=== PATIENT | female | born 1995 | race Two or more races ===

== ENCOUNTER 2017-02-16 12:46 | Emergency (ER) | payer OTHER ==
[~2017-02-16] VITALS: Ht 157.5 cm; Wt 83.9 kg
[~2017-02-16 12:46] MED LIST: IBUPROFEN600 MG ORAL; KEFLEX500 MG ORAL; NKM
[2017-02-16] MEDS ORDERED: KENALOG 0.5% CR15 GM APPLIC (13:16)
[2017-02-16 13:24] VITALS: BP 143/66
--- NOTE | 2017-02-16 16:18 | Emergency Room Report ---
History of Present Illness General Chief Complaint: Skin Rash/Abscess Source: Patient Present Illness HPI The patient is a 21-year-old female presenting for rash to the face. She states that this began two weeks prior without any known cause. She denies using any new products on the face. She denies any known allergies. Rash is described as a burning and itching sensation. 8/10 pain. Does not radiate. Worse with touch. She has tried Benadryl at home which has not helped. She also saw her primary doctor who prescribed antibiotics which also did not help. Allergies: Coded Allergies: No Known Allergies (Unverified , 08/21/15) Patient History Past Medical History: see triage record Pertinent Family History: none Now: No Reviewed Nursing Documentation: PMH: Agreed, PSxH: Agreed Nursing Documentation-PMH Past Medical History: No Stated History Hx Asthma: Yes Review of Systems All Other Systems: negative except mentioned in HPI Physical Exam Vital Signs Date Time Temp Pulse Resp B/P Pulse Ox O2 Delivery O2 Flow Rate FiO2 02/16/17 12:56 98.2 66 20 130/93 99 Room Air Sp02 EP Interpretation: reviewed, normal General Appearance: no apparent distress, alert, GCS 15, non-toxic Head: normocephalic, atraumatic Eyes: bilateral eye PERRL, bilateral eye normal inspection ENT: hearing grossly normal, normal pharynx, no angioedema, normal voice Neck: full range of motion, supple/symm/no masses Musculoskeletal: back normal, gait/station normal, normal range of motion, non- tender Neurologic: alert, oriented x3, responsive, motor strength/tone normal, sensory intact, speech normal Psychiatric: judgement/insight normal, memory normal, mood/affect normal, no suicidal/homicidal ideation Skin: warm/dry, normal turgor, rash - there is erythema and scaling inferior to the both eyes. Spares the nose. Lymphatic: no adenopathy Medical Decision Making PA Attestation Dr. Manzano is my supervising physician. Patient management was discussed with my supervising physician Diagnostic Impression: Primary Impression: Eczema of face ER Course The patient is a 21-year-old female presenting with facial rash Differential diagnoses considered but not limited to: Eczema, SLE, cellulitis, contact dermatitis, among others PE: afebrile. NAD there is erythema and scaling inferior to the both eyes. Spares the nose. Otherwise exam is unremarkable Patient will be discharged home with a prescription for triamcinolone and needs to follow up with primary doctor. She was told to followup with dermatology if symptoms do not improve or if they worsen. ER precautions given Last Vital Signs Date Time Temp Pulse Resp B/P Pulse Ox O2 Delivery O2 Flow Rate FiO2 02/16/17 13:24 98.6 70 19 143/66 98 Room Air Status: improved Disposition: HOME, SELF-CARE Condition: Improved Scripts Triamcinolone Acet (Triamcinolone Acetonide) 15 Gm Cream..g. 15 GM APPLIC TID, #15 GM Prov: HAFSA AYON 02/16/17 Referrals: [facility] (PCP) Patient Instructions: Rash Additional Instructions: I discussed my findings with the patient. All questions and concerns have been answered. Treatment and medication compliance have been addressed. I advised the patient that they need to follow up with PMD in 3-5 days. Return to ED if symptoms worsen, new symptoms arise, or if needed for any reason. Patient verbalized understanding of discharge instructions. HAFSA AYON Feb 16, 2017 16:18
== END 2017-02-16 13:24 | disposition home or self-care (01) ==
LOC: EMR 13:15
DX: L30.9 Dermatitis, unspecified (principal)
CPT/HCPCS: 99283

== ENCOUNTER 2017-12-25 08:42 | Emergency (ER) | payer OTHER ==
[~2017-12-25] VITALS: Ht 157.5 cm; Wt 85.7 kg
[~2017-12-25 08:42] MED LIST changes: +KENALOG 0.5% CR15 GM APPLIC
[2017-12-25 08:54] VITALS: BP 132/82
--- NOTE | 2017-12-25 09:19 | Emergency Room Report ---
History of Present Illness General Chief Complaint: Pain Source: Patient Present Illness HPI 22-year-old female with no medical problems presents with right breast pain for the last 2 weeks. She reports that she's had a small lump there at the 8 o' clock position of her nipple for the past year, she reports it swells and then recedes off and on. However, now she reports it is red and she is having discharge from that 8 o'clock position as well as possibly from the nipple. She reports a whole breast is tender but mostly over the 1 small spot, she also reports that spot is red now. She reports a sensation of nausea, but denies vomiting, fevers, chills, shortness of breath, any other complaints. She has a primary care doctor, but has not consulted him regarding this yet. She has never had a mammogram either. She also has no family history of breast cancer. Allergies: Coded Allergies: No Known Allergies (Unverified , 08/21/15) Patient History Past Medical History: see triage record Last Menstrual Period: Current, started yesterday. Now: No : 0 Para: 0 Reviewed Nursing Documentation: PMH: Agreed; PSxH: Agreed Nursing Documentation-PMH Past Medical History: No History, Except For Hx Asthma: Yes Review of Systems All Other Systems: negative except mentioned in HPI Physical Exam Vital Signs Date Time Temp Pulse Resp B/P (MAP) Pulse Ox O2 Delivery O2 Flow Rate FiO2 12/25/17 08:46 98.9 60 17 132/82 96 Room Air 99.0 Sp02 EP Interpretation: reviewed, normal General Appearance: no apparent distress, alert, non-toxic Head: normocephalic Eyes: bilateral eye normal inspection, bilateral eye PERRL, bilateral eye EOMI ENT: normal ENT inspection, hearing grossly normal, normal pharynx, no angioedema, normal voice, moist mucus membranes Neck: normal inspection, full range of motion, supple, supple/symm/no masses Respiratory: chest non-tender, lungs clear, normal breath sounds, chest symmetrical, palpation of chest normal Cardiovascular #1: normal peripheral pulses, regular rate, rhythm Cardiovascular #2: 2+ radial (R), 2+ radial (L) Gastrointestinal: normal inspection, non tender, soft, no mass, no guarding, no rebound Rectal: deferred Genitourinary: normal inspection, no CVA tenderness Musculoskeletal: back normal, gait/station normal, normal range of motion, non- tender, no calf tenderness Neurologic: alert, responsive, conduit reamer operator III-XII nml as tested, motor strength/tone normal, sensory intact, speech normal Psychiatric: judgement/insight normal, memory normal, mood/affect normal, no suicidal/homicidal ideation Skin: warm/dry, normal turgor, other - R breast exam with Magalie RN as mix maker , 1cm area of erythema at 8 o'clock position just at edge of nipple, no fluctuance, no dc, no nipple dc, no dimpling, no warmth; +mild tenderness diffusely over R breast but normal appearance. Normal axillary LAD, normal contralateral breast. Lymphatic: normal inspection, no adenopathy Medical Decision Making Diagnostic Impression: Primary Impression: Cellulitis of breast ER Course Patient will be treated for breast cellulitis, there is no palpable lump would mandate incision and drainage, I did addiction counselor her on the importance of getting a mammogram, and follow-up with PMD in 2-3 days. I do not have a high suspicion for breast cancer, but has this lump has been persistent for a year, I did report to her that it has to be evaluated further. She seemed to understand and agree. UPreg negative. Last Vital Signs Date Time Temp Pulse Resp B/P (MAP) Pulse Ox O2 Delivery O2 Flow Rate FiO2 12/25/17 08:54 99.0 60 17 132/82 96 Room Air 99.0 Disposition: HOME, SELF-CARE Condition: Stable Referrals: [facility] (PCP) BRENDON SMITH M.D Dec 25, 2017 09:19
[2017-12-25] MEDS ORDERED: AMOXICILLIN500 MG ORAL (09:31)
[2017-12-25] MEDS ORDERED: BACTRIM DS TAB1 EAC1 ORAL (09:31)
[2017-12-25] MEDS ORDERED: IBUPROFEN600 MG ORAL (09:31)
[2017-12-25 09:38] VITALS: BP 132/82
== END 2017-12-25 09:40 | disposition home or self-care (01) ==
LOC: EMR 09:01
DX: N61.0 Mastitis without abscess (principal); J45.909 Unspecified asthma, uncomplicated
CPT/HCPCS: 81025; 99283

== ENCOUNTER 2018-08-23 23:20 | Emergency (ER) | payer OTHER ==
[~2018-08-23] VITALS: Ht 157.5 cm; Wt 90.7 kg
[~2018-08-23 23:20] MED LIST changes: +AMOXICILLIN500 MG ORAL; +BACTRIM DS TAB1 EAC1 ORAL
[2018-08-23 23:30] VITALS: BP 123/70
--- NOTE | 2018-08-23 23:30 | NUR ---
ED Nurse Note: Patient walk in c/o sore throat, nausea/vomiting, fever since last night. pt stated she vomited @1100, and felt dizzy. will continue to monitor.
--- NOTE | 2018-08-23 23:30 | NUR ---
ED Nurse Note: Patient walk in c/o sore throat, nausea/vomiting, fever since last night. pt complaining 9/10 pain on throat when swallowing. ermd on bedside. will continue to monitor.
[2018-08-23] MEDS ORDERED: Ketorolac 30mg Inj IV ONE (23:45)
[2018-08-23] MEDS ORDERED: Acetaminophen 500mg (ES) tab ORAL ONE (23:45)
--- NOTE | 2018-08-23 23:45 | Emergency Room Report ---
History of Present Illness General Chief Complaint: Flu Like Symptoms Source: Patient Present Illness HPI Patient presents with reports of cough congestion sore throat bodyaches low- grade fever symptoms started today Patient also had a mild headache denies any neck pain or photophobia denies any chest pain Denies any vomiting or diarrhea Denies any abdominal pain Denies any recent travel Allergies: Coded Allergies: No Known Allergies (Unverified , 08/21/15) Patient History Past Medical History: see triage record Pertinent Family History: none Last Menstrual Period: 08/09/2018 Now: No Reviewed Nursing Documentation: PMH: Agreed; PSxH: Agreed Nursing Documentation-PMH Past Medical History: No History, Except For Hx Asthma: Yes Review of Systems All Other Systems: negative except mentioned in HPI Physical Exam Vital Signs Date Time Temp Pulse Resp B/P (MAP) Pulse Ox O2 Delivery O2 Flow Rate FiO2 08/23/18 23:24 99.1 129 20 123/70 99 Room Air Sp02 EP Interpretation: reviewed, normal General Appearance: well appearing, no apparent distress Head: normocephalic, atraumatic Eyes: bilateral eye PERRL, bilateral eye EOMI ENT: hearing grossly normal, TMs + canals normal, uvula midline, pharyngeal erythema Neck: full range of motion, supple, no meningismus, no bony tend Respiratory: lungs clear, normal breath sounds, no rhonchi, no respiratory distress, no retraction, no accessory muscle use Cardiovascular #1: normal peripheral pulses, no edema, no gallop, no JVD, no murmur, tachycardia Gastrointestinal: normal bowel sounds, non tender, soft, no mass, no organomegaly, non-distended, no guarding, no hernia, no pulsatile mass, no rebound Genitourinary: no CVA tenderness Musculoskeletal: normal inspection Neurologic: oriented x3, responsive, site worker III-XII nml as tested, motor strength/ tone normal, sensory intact Psychiatric: mood/affect normal Skin: normal color, no rash, warm/dry, palpation normal Lymphatic: normal inspection, no adenopathy Medical Decision Making Diagnostic Impression: Primary Impression: Pharyngitis Additional Impression: Influenza-like symptoms ER Course Multiple differentials and consideration Given the patient's initial mild tachycardia further extensive workup was initiated White blood cell count does show mild elevation of white blood cells Chemistry otherwise within normal limits influenza was negative Chest x-ray was normal Patient received further hydration and pain medicine Initial antibiotic dose Consideration for retropharyngeal abscess peritonsillar abscesses made however does not clinically correlate and patient will have initial conservative outpatient trial/ Labs Test 08/23/18 23:53 08/24/18 00:52 White Blood Count 17.4 K/UL (4.8-10.8) Red Blood Count 4.35 M/UL (4.20-5.40) Hemoglobin 14.0 G/DL (12.0-16.0) Hematocrit 39.9 % (37.0-47.0) Mean Corpuscular Volume 92 FL (80-99) Mean Corpuscular Hemoglobin 32.2 PG (27.0-31.0) Mean Corpuscular Hemoglobin Concent 35.1 G/DL (32.0-36.0) Red Cell Distribution Width 10.8 % (11.6-14.8) Platelet Count 324 K/UL (150-450) Mean Platelet Volume 7.5 FL (6.5-10.1) Neutrophils (%) (Auto) 76.0 % (45.0-75.0) Lymphocytes (%) (Auto) 16.9 % (20.0-45.0) Monocytes (%) (Auto) 6.1 % (1.0-10.0) Eosinophils (%) (Auto) 0.6 % (0.0-3.0) Basophils (%) (Auto) 0.5 % (0.0-2.0) Urine Color Pale yellow Urine Appearance Clear Urine pH 7 (4.5-8.0) Urine Specific [place] 1.010 (1.005-1.035) Urine Protein Negative (NEGATIVE) Urine Glucose (UA) Negative (NEGATIVE) Urine Ketones Negative (NEGATIVE) Urine Blood Negative (NEGATIVE) Urine Nitrite Negative (NEGATIVE) Urine Bilirubin Negative (NEGATIVE) Urine Urobilinogen Normal MG/DL (0.0-1.0) Urine Leukocyte Esterase 2+ (NEGATIVE) Urine RBC 0-2 /HPF (0 - 2) Urine WBC 0-2 /HPF (0 - 2) Urine Squamous Epithelial Cells Occasional /LPF Urine Bacteria None /HPF (NONE) Urine HCG, Qualitative Negative (NEGATIVE) Sodium Level 139 MMOL/L (136-145) Potassium Level 4.1 MMOL/L (3.5-5.1) Chloride Level 102 MMOL/L (98-107) Carbon Dioxide Level 29 MMOL/L (21-32) Anion Gap 9 mmol/L (5-15) Blood Urea Nitrogen 19 mg/dL (7-18) Creatinine 0.8 MG/DL (0.55-1.30) Estimat Glomerular Filtration Rate > 60 mL/min (>60) Glucose Level 102 MG/DL (74-106) Calcium Level 8.9 MG/DL (8.5-10.1) Total Bilirubin 0.5 MG/DL (0.2-1.0) Aspartate Amino Transf (AST/SGOT) 12 U/L (15-37) Alanine Aminotransferase (ALT/SGPT) 25 U/L (12-78) Alkaline Phosphatase 95 U/L (46-116) Total Creatine Kinase 112 U/L (26-308) Creatine Kinase MB 1.6 NG/ML (0.0-3.6) Creatine Kinase MB Relative Index 1.4 Total Protein 7.5 G/DL (6.4-8.2) Albumin 3.6 G/DL (3.4-5.0) Globulin 3.9 g/dL Albumin/Globulin Ratio 0.9 (1.0-2.7) Lipase 226 U/L (73-393) Urine Opiates Screen Negative (NEGATIVE) Urine Barbiturates Screen Negative (NEGATIVE) Phencyclidine (PCP) Screen Negative (NEGATIVE) Urine Amphetamines Screen Negative (NEGATIVE) Urine Benzodiazepines Screen Negative (NEGATIVE) Urine Cocaine Screen Negative (NEGATIVE) Urine Marijuana (THC) Screen Negative (NEGATIVE) Chest X-Ray Diagnostic Results Chest X-Ray Diagnostic Results : Chest X-Ray Ordered: Yes # of Views/Limited/Complete: 1 View Indication: Shortness of Breath EP Interpretation: Yes Interpretation: no consolidation, no effusion, no pneumothorax Impression: No acute disease Electronically Signed by: Sy Mccrary DO Last Vital Signs Date Time Temp Pulse Resp B/P (MAP) Pulse Ox O2 Delivery O2 Flow Rate FiO2 08/23/18 23:24 99.1 129 20 123/70 99 Room Air Status: improved Disposition: HOME, SELF-CARE Condition: Improved Scripts Ibuprofen* (MOTRIN*) 600 Mg Tablet 600 MG ORAL Q8H PRN for For Pain, #20 TAB 0 Refills Prov: Sy Mccrary DO 08/24/18 Amoxicillin* (AMOXIL*) 500 Mg Capsule 500 MG ORAL THREE TIMES A DAY, #30 CAP Prov: Sy Mccrary DO 08/24/18 Additional Instructions: Patient is provided with the discharge instructions notified to follow up with primary doctor in the next 2-3 days otherwise return to the er with any worsening symptoms. Please note that this report is being documented using [employer] technology. This can lead to erroneous entry secondary to incorrect interpretation by the dictating instrument. Sy Mccrary DO Aug 23, 2018 23:45
[2018-08-24 00:10] LABS: BASOPHILS % (AUTO) 0.5 % (0.0-2.0); EOSINOPHILS % (AUTO) 0.6 % (0.0-3.0); HEMATOCRIT 39.9 % (37.0-47.0); LYMPHOCYTES % (AUTO) 16.9 % (20.0-45.0); MEAN CORPUSCULAR VOLUME 92 FL (80-99); MONOCYTES % (AUTO) 6.1 % (1.0-10.0); PLATELET COUNT 324 K/UL (150-450); RED BLOOD COUNT 4.35 M/UL (4.20-5.40); RED CELL DISTRIBUTION WIDTH 10.8 % (11.6-14.8); WHITE BLOOD COUNT 17.4 K/UL (4.8-10.8)
[2018-08-24 00:16] LABS: APPEARANCE,URINE CLEAR; BILIRUBIN, URINE NEGATIVE (NEGATIVE); COLOR,URINE PALE YELLOW; GLUCOSE, URINE (UA) NEGATIVE (NEGATIVE); KETONES,URINE NEGATIVE (NEGATIVE); LEUKOCYTE ESTERASE ,URINE 2+ (NEGATIVE); NITRITE,URINE NEGATIVE (NEGATIVE); PH,URINE 7 (4.5-8.0); PROTEIN,URINE NEGATIVE (NEGATIVE); UROBILINOGEN,URINE NORMAL MG/DL (0.0-1.0)
[2018-08-24 00:20] LABS: ANION GAP 9 mmol/L (5-15); BLOOD UREA NITROGEN 19 mg/dL (7-18); CALCIUM 8.9 MG/DL (8.5-10.1); CARBON DIOXIDE 29 MMOL/L (21-32); CHLORIDE 102 MMOL/L (98-107); CREATININE 0.8 MG/DL (0.55-1.30); POTASSIUM 4.1 MMOL/L (3.5-5.1); SODIUM 139 MMOL/L (136-145)
[2018-08-24 00:33] LABS: ALANINE AMINOTRANSFERASE 25 U/L (12-78); ALBUMIN 3.6 G/DL (3.4-5.0); ALBUMIN/GLOBULIN RATIO 0.9 (1.0-2.7); ALKALINE PHOSPHATASE 95 U/L (46-116); ASPARTATE AMINO TRANSFERASE 12 U/L (15-37); BILIRUBIN,TOTAL 0.5 MG/DL (0.2-1.0); CKMB 1.6 NG/ML (0.0-3.6); CREATINE KINASE 112 U/L (26-308)
[2018-08-24] MEDS ORDERED: Ampicillin/Sulbactam Sod 3 GM in NS 110 ML IVPB ONE (01:00)
[2018-08-24 02:10] VITALS: BP 126/71
[2018-08-24] MEDS ORDERED: AMOXICILLIN500 MG ORAL (02:14)
[2018-08-24] MEDS ORDERED: IBUPROFEN600 MG ORAL (02:14)
[2018-08-24 02:16] VITALS: BP 126/71
--- NOTE | 2018-08-24 02:16 | NUR ---
ER DISCHARGE NOTE: Patient is cleared to be discharged per ERMD, pt is aox4, on room air, with stable vital signs. pt was given dc and prescription instructions, pt was able to verbalize understanding, pt id band removed without complications. pt is able to ambulate with steady gait. pt took all belongings.
== END 2018-08-24 02:16 | disposition home or self-care (01) ==
LOC: EMR 23:40
DX: J02.9 Acute pharyngitis, unspecified (principal); J45.909 Unspecified asthma, uncomplicated; J11.1 Influenza due to unidentified influenza virus with other respiratory manifestations; R00.0 Tachycardia, unspecified
CPT/HCPCS: 36415; 71045; 80053; 80307; 81003; 81025; 82550; 82553; 83690; 85025; 86710; 96361; 96365; 96375; 99284; J0295; J1885

== ENCOUNTER 2018-10-22 08:25 | Emergency (ER) | payer OTHER ==
[~2018-10-22] VITALS: Ht 157.5 cm; Wt 87.1 kg
[2018-10-22] MEDS ORDERED: NKM (08:34)
--- NOTE | 2018-10-22 08:58 | Emergency Room Report ---
History of Present Illness General Chief Complaint: Flu Like Symptoms Source: Patient Present Illness HPI This patient states that she has had sore throat and cough for the past month. She states that a couple weeks ago she was seen here for the same symptoms. She states she took a course of antibiotics (amoxicillin), but states her symptoms continue. She states she has ongoing sore throat. She denies headache or neck pain. She has subjective fever but denies chills. She denies weakness. She denies chest pain or abdominal pain. She has no other complaints. Allergies: Coded Allergies: No Known Allergies (Unverified , 08/21/15) Patient History Past Medical History: see triage record, asthma - as a child, other - Hx of HEP A (resolved) Social History: Denies: smoking, alcohol use, drug use Last Menstrual Period: oct Now: No - unsure Reviewed Nursing Documentation: PMH: Agreed; PSxH: Agreed Nursing Documentation-PMH Hx Asthma: Yes Review of Systems All Other Systems: negative except mentioned in HPI Physical Exam Vital Signs Date Time Temp Pulse Resp B/P (MAP) Pulse Ox O2 Delivery O2 Flow Rate FiO2 10/22/18 08:30 99.7 94 16 131/94 97 Room Air Sp02 EP Interpretation: reviewed, normal General Appearance: no apparent distress, alert, GCS 15, non-toxic Head: normocephalic, atraumatic Eyes: bilateral eye normal inspection, bilateral eye PERRL ENT: hearing grossly normal, normal pharynx, no angioedema, normal voice, TMs + canals normal, uvula midline, moist mucus membranes Neck: full range of motion, supple/symm/no masses, other - Anterior cervical [place] Respiratory: chest non-tender, lungs clear, normal breath sounds, no respiratory distress, no retraction, no accessory muscle use, speaking full sentences Cardiovascular #1: regular rate, rhythm, no edema Rectal: deferred Musculoskeletal: back normal, gait/station normal, normal range of motion Neurologic: alert, oriented x3, responsive, motor strength/tone normal, sensory intact, speech normal Psychiatric: judgement/insight normal, memory normal, mood/affect normal, no suicidal/homicidal ideation Skin: normal color, no rash, warm/dry, well hydrated Lymphatic: other - See above in neck Medical Decision Making Diagnostic Impression: Primary Impression: Pharyngitis Additional Impression: Viral syndrome ER Course This patient has a clinical presentation consistent with pharyngitis. Physical exam is consistent with a viral etiology. There is no evidence of peritonsillar abscess or deep neck abscess. There is no airway edema. Overall , this patient had a very benign examination. The patient only needs supportive care. The patient is instructed to get [id number] lozenges. I will also give the patient Motrin as a pain medication and anti-inflammatory. Given the length of symptoms, I did obtain a Monospot, however, the Monospot will not be resulted for 3 days. [place] is part of my differential given the length of symptoms. However, this would not change the patient treatment. The patient was also given a nebulizer treatment with albuterol and felt she had relief of her symptoms. Given the patient's history of asthma, I will go ahead and give her an albuterol inhaler and antihistamine. She is not wheezing so I will refrain from prednisone in this patient. The patient was given return precautions and followup instructions. Laboratory Tests Test 10/22/18 09:00 10/22/18 09:13 Urine Color Pale yellow Urine Appearance Clear Urine pH 7 (4.5-8.0) Urine Specific [place] 1.005 (1.005-1.035) Urine Protein Negative (NEGATIVE) Urine Glucose (UA) Negative (NEGATIVE) Urine Ketones Negative (NEGATIVE) Urine Blood Negative (NEGATIVE) Urine Nitrite Negative (NEGATIVE) Urine Bilirubin Negative (NEGATIVE) Urine Urobilinogen Normal MG/DL (0.0-1.0) Urine Leukocyte Esterase 3+ (NEGATIVE) H Urine RBC 0-2 /HPF (0 - 2) Urine WBC 5-10 /HPF (0 - 2) H Urine Squamous Epithelial Cells Few /LPF (NONE/OCC) Urine Bacteria Few /HPF (NONE) Urine HCG, Qualitative Negative (NEGATIVE) Monoscreen Pending Microbiology Date/Time Source Procedure Growth Status 10/22/18 09:00 Nasal Nares - Final Complete 10/22/18 09:00 Nasal Nares - Final Complete Last Vital Signs Date Time Temp Pulse Resp B/P (MAP) Pulse Ox O2 Delivery O2 Flow Rate FiO2 10/22/18 08:30 99.7 94 16 131/94 97 Room Air Status: improved Disposition: HOME, SELF-CARE Condition: Improved Diana Gilmore DO Oct 22, 2018 08:57
[2018-10-22] MEDS ORDERED: Albuterol ud Inhalation HHN ONE (09:00)
[2018-10-22 09:17] LABS: APPEARANCE,URINE CLEAR; BILIRUBIN, URINE NEGATIVE (NEGATIVE); COLOR,URINE PALE YELLOW; GLUCOSE, URINE (UA) NEGATIVE (NEGATIVE); KETONES,URINE NEGATIVE (NEGATIVE); LEUKOCYTE ESTERASE ,URINE 3+ (NEGATIVE); NITRITE,URINE NEGATIVE (NEGATIVE); PH,URINE 7 (4.5-8.0); PROTEIN,URINE NEGATIVE (NEGATIVE); UROBILINOGEN,URINE NORMAL MG/DL (0.0-1.0)
--- NOTE | 2018-10-22 09:30 | NUR ---
ED Nurse Note:blood and urine sent to labs
[2018-10-22] MEDS ORDERED: ZYRTEC10 MG ORAL (09:57)
[2018-10-22] MEDS ORDERED: ALBUTEROL SULF8.5 GM INH (09:57)
[2018-10-22 10:29] VITALS: BP 130/89
--- NOTE | 2018-10-22 10:33 | NUR ---
ER DISCHARGE NOTE: Patient is cleared to be discharged per ERMD, pt is aox4, on room air, with stable vital signs. pt was given dc and prescription instructions, pt was able to verbalize understanding, pt is able to ambulate with steady gait. pt took all belongings.
== END 2018-10-22 10:33 | disposition home or self-care (01) ==
LOC: EDUNIT# 08:25 → EMR 09:21
DX: J02.9 Acute pharyngitis, unspecified (principal); B34.9 Viral infection, unspecified
CPT/HCPCS: 81003; 81025; 86308; 86710; 94640; 94664; 99284

== ENCOUNTER 2018-12-14 02:11 | Emergency (ER) | payer OTHER ==
[~2018-12-14] VITALS: Ht 157.5 cm; Wt 89.8 kg
[~2018-12-14 02:11] MED LIST changes: +ALBUTEROL SULF8.5 GM INH; +ZYRTEC10 MG ORAL
[2018-12-14 02:16] VITALS: BP 134/75
--- NOTE | 2018-12-14 02:16 | NUR ---
ED Nurse Note: Patient resting comfortably post medication administration. Blood and urine collected and sent to lab.
[2018-12-14] MEDS ORDERED: Morphine Sulfate 4mg/ml Inj (IV USE ONLY) IVP ONE (02:45)
[2018-12-14] MEDS ORDERED: Isovue-300 100ml vial INJ PRN (02:45)
[2018-12-14 02:54] LABS: APPEARANCE,URINE CLEAR; BILIRUBIN, URINE NEGATIVE (NEGATIVE); COLOR,URINE PALE YELLOW; GLUCOSE, URINE (UA) NEGATIVE (NEGATIVE); KETONES,URINE NEGATIVE (NEGATIVE); LEUKOCYTE ESTERASE ,URINE 2+ (NEGATIVE); NITRITE,URINE NEGATIVE (NEGATIVE); PH,URINE 7 (4.5-8.0); PROTEIN,URINE NEGATIVE (NEGATIVE); UROBILINOGEN,URINE NORMAL MG/DL (0.0-1.0)
[2018-12-14 02:56] LABS: BASOPHILS % (AUTO) 0.4 % (0.0-2.0); EOSINOPHILS % (AUTO) 1.7 % (0.0-3.0); HEMOGLOBIN 14.1 G/DL (12.0-16.0); LYMPHOCYTES % (AUTO) 19.6 % (20.0-45.0); MEAN CORPUSCULAR VOLUME 89 FL (80-99); MONOCYTES % (AUTO) 6.1 % (1.0-10.0); NEUTROPHILS % (AUTO) 72.1 % (45.0-75.0); PLATELET COUNT 279 K/UL (150-450); RED BLOOD COUNT 4.49 M/UL (4.20-5.40); RED CELL DISTRIBUTION WIDTH 10.3 % (11.6-14.8); WHITE BLOOD COUNT 10.2 K/UL (4.8-10.8)
[2018-12-14 03:07] LABS: ANION GAP 7 mmol/L (5-15); BLOOD UREA NITROGEN 15 mg/dL (7-18); CALCIUM 8.5 MG/DL (8.5-10.1); CARBON DIOXIDE 26 MMOL/L (21-32); CHLORIDE 104 MMOL/L (98-107); CREATININE 0.6 MG/DL (0.55-1.30); POTASSIUM 3.4 MMOL/L (3.5-5.1); SODIUM 137 MMOL/L (136-145)
[2018-12-14 03:12] LABS: ALANINE AMINOTRANSFERASE 28 U/L (12-78); ALBUMIN 3.5 G/DL (3.4-5.0); ALBUMIN/GLOBULIN RATIO 0.9 (1.0-2.7); ALKALINE PHOSPHATASE 91 U/L (46-116); ASPARTATE AMINO TRANSFERASE 11 U/L (15-37); BILIRUBIN,TOTAL 0.4 MG/DL (0.2-1.0)
--- NOTE | 2018-12-14 03:16 | NUR ---
ED Nurse Note: Patient resting comfortably, patient tolerated medication well.
--- NOTE | 2018-12-14 03:55 | NUR ---
ED Nurse Note: Patient relaxing with significant other at bedside.
--- NOTE | 2018-12-14 04:00 | NUR ---
ED Nurse Note: Patient went down for CT.
--- NOTE | 2018-12-14 04:24 | NUR ---
ED Nurse Note: Patient back from CT.
--- NOTE | 2018-12-14 05:09 | Diagnostic Imaging Report ---
EXAM: CT Abdomen and Pelvis With Intravenous Contrast CLINICAL HISTORY: ABD PAIN TECHNIQUE: Axial computed tomography images of the abdomen and pelvis with intravenous contrast. CTDI is 27.74 mGy and DLP is 1523 mGy-cm. One or more of the following dose reduction techniques were used: automated exposure control, adjustment of the mA and/or kV according to patient size, use of iterative reconstruction technique. COMPARISON: 08/22/15 CT abdomen pelvis FINDINGS: Lung bases: Unremarkable. No mass. No consolidation. ABDOMEN: Liver: Unremarkable. No mass. Gallbladder and bile ducts: Unremarkable. No calcified stones. No ductal dilation. Pancreas: Unremarkable. No mass. No ductal dilation. Spleen: Unremarkable. No splenomegaly. Adrenals: Unremarkable. No mass. Kidneys and ureters: Unremarkable. No solid mass. No hydronephrosis. Stomach and bowel: Unremarkable. No obstruction. No mucosal thickening. PELVIS: Appendix: No findings to suggest acute appendicitis. Bladder: Unremarkable. No mass. Reproductive: Unremarkable as visualized. ABDOMEN and PELVIS: Intraperitoneal space: Unremarkable. No free air. No significant fluid collection. Bones/joints: No acute fracture. No dislocation. Soft tissues: Unremarkable. Vasculature: Unremarkable. No abdominal aortic aneurysm. Lymph nodes: Unremarkable. No enlarged lymph nodes. IMPRESSION: Normal abdomen and pelvis CT.
[2018-12-14] MEDS ORDERED: AMOXICILLIN500 MG ORAL (05:12)
[2018-12-14] MEDS ORDERED: COLACE100 MG ORAL (05:12)
[2018-12-14] MEDS ORDERED: MAGNESIUM CITR296 M1 PO (05:12)
--- NOTE | 2018-12-14 05:21 | NUR ---
ED Nurse Note: Patient cleared for discharge, patient A&Ox4, no s/s of acute distress. Patient Ambulatory with steady gait. Patient ID band removed, Patient IV removed, patient departed with all belongings accompanied by significant other.
[2018-12-14 05:23] VITALS: BP 134/75
--- NOTE | 2018-12-14 05:27 | Emergency Room Report ---
History of Present Illness General Chief Complaint: Abdominal Pain Source: Patient Present Illness HPI 23-year-old female presents ED for evaluation. Complaining of abdominal pain and sore throat. States she has been having abdominal pain for the last month. Dull, 8 out of 10, nonradiating. Denies nausea or vomiting. Denies fevers or chills. Denies any diarrhea. States that she has been having a sore throat for the last 3 months. Not getting better despite [id number] medication. Denies cough. Denies earache. Denies sick contacts or recent travel. No other aggravating or relieving factors. Denies any other associated symptoms Allergies: Coded Allergies: No Known Allergies (Unverified , 08/21/15) Patient History Past Medical History: asthma Past Surgical History: none Pertinent Family History: none Social History: Denies: smoking, alcohol use, drug use Last Menstrual Period: Nov 10 2018 Now: No Immunizations: UTD Reviewed Nursing Documentation: PMH: Agreed; PSxH: Agreed Nursing Documentation-PMH Hx Asthma: Yes Review of Systems All Other Systems: negative except mentioned in HPI Physical Exam Vital Signs Date Time Temp Pulse Resp B/P (MAP) Pulse Ox O2 Delivery O2 Flow Rate FiO2 12/14/18 02:14 98.8 109 19 121/89 (100) 95 Room Air Sp02 EP Interpretation: reviewed, normal General Appearance: no apparent distress, alert, GCS 15, non-toxic Head: normocephalic, atraumatic Eyes: bilateral eye normal inspection, bilateral eye PERRL ENT: hearing grossly normal, no angioedema, normal voice, TMs + canals normal, pharyngeal erythema Neck: full range of motion, supple/symm/no masses Respiratory: chest non-tender, lungs clear, normal breath sounds, speaking full sentences Cardiovascular #1: regular rate, rhythm, no edema Cardiovascular #2: 2+ carotid (R), 2+ carotid (L), 2+ radial (R), 2+ radial (L) , 2+ dorsalis pedis (R), 2+ dorsalis pedis (L) Gastrointestinal: normal bowel sounds, soft, non-distended, no guarding, no rebound, tenderness Rectal: deferred Genitourinary: normal inspection, no CVA tenderness Musculoskeletal: back normal, gait/station normal, normal range of motion, non- tender Neurologic: alert, oriented x3, responsive, motor strength/tone normal, sensory intact, speech normal Psychiatric: judgement/insight normal, memory normal, mood/affect normal, no suicidal/homicidal ideation Reflexes: 3+ bicep (R), 3+ bicep (L), 3+ tricep (R), 3+ tricep (L), 3+ knee (R) , 3+ knee (L) Skin: normal color, no rash, warm/dry, well hydrated Lymphatic: no adenopathy Medical Decision Making Diagnostic Impression: Primary Impression: Constipation Qualified Codes: K59.00 - Constipation, unspecified Additional Impression: Pharyngitis Qualified Codes: J02.9 - Acute pharyngitis, unspecified ER Course Hospital Course 23-year-old F presents to ED with abdominal pain. c/o sore throat Differential diagnosis includes-appendicitis, cholecystitis, small bowel obstruction, gastritis, Clinical course Patient placed on stretcher. After initial history and physical I ordered labs , IV fluids, pain medications and CT Labs - no leukocytosis, electrolytes ok, LFTs normal, UA unremarkable CT - copious stool noted , no acute process discussed findings with patient. Will discharge with antibiotics for presumed pharyngitis. With stool softeners. Safe for discharge for close outpatient follow-up. States she has a PMD I feel this is a highly complex case requiring extensive working including EKG/ Rhythm strip, Xray/CT/US, Blood/urine lab work, repeat exams while in ED, and administration of strong opiates/narcotics for pain control, admission to hospital or close patient follow up. Diagnosis - constipation, pharyngitis Stable and discharged to home with Rx Mag citrate, Colace, amoxicillin. instructed on high-fiber diet. Followup with PMD. Return to ED if symptoms recur or worsen Labs Test 12/14/18 02:30 12/14/18 02:38 Urine Color Pale yellow Urine Appearance Clear Urine pH 7 (4.5-8.0) Urine Specific [place] 1.005 (1.005-1.035) Urine Protein Negative (NEGATIVE) Urine Glucose (UA) Negative (NEGATIVE) Urine Ketones Negative (NEGATIVE) Urine Blood Negative (NEGATIVE) Urine Nitrite Negative (NEGATIVE) Urine Bilirubin Negative (NEGATIVE) Urine Urobilinogen Normal MG/DL (0.0-1.0) Urine Leukocyte Esterase 2+ (NEGATIVE) Urine RBC 0-2 /HPF (0 - 2) Urine WBC 2-4 /HPF (0 - 2) Urine Squamous Epithelial Cells Occasional /LPF Urine Bacteria Few /HPF (NONE) Urine HCG, Qualitative Negative (NEGATIVE) White Blood Count 10.2 K/UL (4.8-10.8) Red Blood Count 4.49 M/UL (4.20-5.40) Hemoglobin 14.1 G/DL (12.0-16.0) Hematocrit 40.0 % (37.0-47.0) Mean Corpuscular Volume 89 FL (80-99) Mean Corpuscular Hemoglobin 31.5 PG (27.0-31.0) Mean Corpuscular Hemoglobin Concent 35.4 G/DL (32.0-36.0) Red Cell Distribution Width 10.3 % (11.6-14.8) Platelet Count 279 K/UL (150-450) Mean Platelet Volume 7.2 FL (6.5-10.1) Neutrophils (%) (Auto) 72.1 % (45.0-75.0) Lymphocytes (%) (Auto) 19.6 % (20.0-45.0) Monocytes (%) (Auto) 6.1 % (1.0-10.0) Eosinophils (%) (Auto) 1.7 % (0.0-3.0) Basophils (%) (Auto) 0.4 % (0.0-2.0) Sodium Level 137 MMOL/L (136-145) Potassium Level 3.4 MMOL/L (3.5-5.1) Chloride Level 104 MMOL/L (98-107) Carbon Dioxide Level 26 MMOL/L (21-32) Anion Gap 7 mmol/L (5-15) Blood Urea Nitrogen 15 mg/dL (7-18) Creatinine 0.6 MG/DL (0.55-1.30) Estimat Glomerular Filtration Rate > 60 mL/min (>60) Glucose Level 109 MG/DL (74-106) Calcium Level 8.5 MG/DL (8.5-10.1) Total Bilirubin 0.4 MG/DL (0.2-1.0) Aspartate Amino Transf (AST/SGOT) 11 U/L (15-37) Alanine Aminotransferase (ALT/SGPT) 28 U/L (12-78) Alkaline Phosphatase 91 U/L (46-116) Total Protein 7.5 G/DL (6.4-8.2) Albumin 3.5 G/DL (3.4-5.0) Globulin 4.0 g/dL Albumin/Globulin Ratio 0.9 (1.0-2.7) Lipase 151 U/L (73-393) Human Chorionic Gonadotropin, Qual Negative (NEGATIVE) CT/MRI/US Diagnostic Results CT/MRI/US Diagnostic Results : Imaging Test Ordered: CT A/P Impression no acute process Last Vital Signs Date Time Temp Pulse Resp B/P (MAP) Pulse Ox O2 Delivery O2 Flow Rate FiO2 12/14/18 05:23 98.8 10 134/75 98 Room Air 12/14/18 02:16 109 Status: improved Disposition: HOME, SELF-CARE Condition: Stable Scripts Magnesium Citrate (MAGNESIUM CITRATE) 296 Ml Solution 150 ML PO DAILY for 2 Days, #296 ML Prov: Nick Sarah MD 12/14/18 Docusate Sodium* (COLACE*) 100 Mg Capsule 100 MG ORAL THREE TIMES A DAY for 10 Days, CAP Prov: Nick Sarah MD 12/14/18 Amoxicillin* (AMOXIL*) 500 Mg Capsule 500 MG ORAL THREE TIMES A DAY, #21 CAP Prov: Nick Sarah MD 12/14/18 Patient Instructions: Constipation, Adult, [id number], Pharyngitis, Easy-to- Read Nick Sarah MD Dec 14, 2018 05:27
[2018-12-14] MEDS ORDERED: ZOFRAN4 M1 ORAL (16:33)
== END 2018-12-14 05:23 | disposition home or self-care (01) ==
LOC: EMR 03:30
DX: K59.00 Constipation, unspecified (principal); J02.9 Acute pharyngitis, unspecified
CPT/HCPCS: 36415; 74177; 80053; 81003; 81025; 83690; 84703; 85025; 96374; 96375; 99284; J2270; J7040; Q9967; S0028

== ENCOUNTER 2018-12-14 16:07 | Emergency (ER) | payer OTHER ==
[~2018-12-14] VITALS: Ht 157.5 cm; Wt 89.8 kg
[~2018-12-14 16:07] MED LIST changes: +COLACE100 MG ORAL; +MAGNESIUM CITR296 M1 PO
--- NOTE | 2018-12-14 16:31 | Emergency Room Report ---
History of Present Illness General Chief Complaint: Headache Source: Patient Present Illness HPI 23-year-old female with no significant past medical history here complaining of one bout of emesis today. Patient was here yesterday and was diagnosed with strep pharyngitis as well as constipation. Patient took the prescribed amoxicillin as well as the laxatives that were given to her she says that she was able to make a bowel movement with some blood on the toilet paper and she does admit to having history of hemorrhoids. Patient reports that she has increased headache after she vomited today. Denies fever, chills, diarrhea, cough and congestion exacerbating. Patient denies any sick contact or recent travel. Denies urinary symptoms, her last menstrual period was a month and half ago however test was negative as it was done yesterday. Patient has not taken any medication for nausea. Is able to tolerate oral hydration. Allergies: Coded Allergies: No Known Allergies (Unverified , 08/21/15) Patient History Past Medical History: see triage record Past Surgical History: unable to obtain Pertinent Family History: none Last Menstrual Period: 11/07/18 Now: No Immunizations: UTD Reviewed Nursing Documentation: PMH: Agreed; PSxH: Agreed Nursing Documentation-PMH Past Medical History: No Stated History Hx Asthma: Yes Review of Systems All Other Systems: negative except mentioned in HPI Physical Exam Vital Signs Date Time Temp Pulse Resp B/P (MAP) Pulse Ox O2 Delivery O2 Flow Rate FiO2 12/14/18 16:13 99.9 112 18 139/84 (102) 97 Room Air Sp02 EP Interpretation: reviewed, normal General Appearance: normal inspection, well appearing Head: normocephalic, atraumatic Eyes: bilateral eye normal inspection, bilateral eye PERRL ENT: normal pharynx, TMs + canals normal, tonsillar swelling - already addressed inprevious visit Neck: normal inspection, full range of motion, supple Respiratory: normal inspection, chest non-tender, lungs clear, no rhonchi, no wheezing Cardiovascular #1: normal inspection, regular rate, rhythm, no edema, no murmur Gastrointestinal: normal inspection, normal bowel sounds, non tender, soft, no bruit, non-distended Rectal: deferred Genitourinary: no CVA tenderness Musculoskeletal: normal inspection, back normal, digits/nails normal Neurologic: normal inspection, alert, oriented x3 Psychiatric: normal inspection, judgement/insight normal Skin: normal inspection, normal color, no rash, warm/dry Lymphatic: normal inspection, no adenopathy Medical Decision Making PA Attestation All my diagnosis and treatment plans were reviewed ad discussed with my supervising physician Dr. Manzano Diagnostic Impression: Primary Impression: Vomiting ER Course 23-year-old female with no significant past medical history here complaining of one bout of emesis today. Patient was here yesterday and was diagnosed with strep pharyngitis as well as constipation. Patient took the prescribed amoxicillin as well as the laxatives that were given to her she says that she was able to make a bowel movement with some blood on the toilet paper and she does admit to having history of hemorrhoids. Patient reports that she has increased headache after she vomited today. Denies fever, chills, diarrhea, cough and congestion exacerbating. Patient denies any sick contact or recent travel. Denies urinary symptoms, her last menstrual period was a month and half ago however test was negative as it was done yesterday. Patient has not taken any medication for nausea. Is able to tolerate oral hydration. Ddx considered but are not limited to: Viral gastroenteritis, vomiting secondary to medication, upper respiratory infection Vital signs: are WNL, pt. is afebrile H&PE are most consistent with: Vomiting secondary to medication(laxatives) ORDERS: Zofran ED INTERVENTIONS: None required at this time. DISCHARGE: At this time pt. is stable for d/c to home. Will provide printed patient care instructions, and any necessary prescriptions. Care plan and follow up instructions have been discussed with the patient prior to discharge. Follow-up with the primary care provider for further testing perhaps you need to have a stool culture take medication as directed drink a lot of fluids no further testing or imaging needed at this point as you are just here a day ago and tested negative for other causes of abdominal pain and constipation Last Vital Signs Date Time Temp Pulse Resp B/P (MAP) Pulse Ox O2 Delivery O2 Flow Rate FiO2 12/14/18 16:13 99.9 112 18 139/84 (102) 97 Room Air Disposition: HOME, SELF-CARE Condition: Stable Scripts Ondansetron (Zofran) 4 Mg Tablet 4 MG ORAL Q6H PRN for Nausea & Vomiting for 3 Days, #10 TAB Prov: Alma Barbosa 12/14/18 Patient Instructions: Nausea and Vomiting, Adult, [id number] Additional Instructions: Take medication as directed follow-up with a primary care provider as you need to have established primary nausea and vomiting secondary to start of amoxicillin and also laxatives. Increase your fluid intake increase your fiber intake avoid spicy acidic food. Alma Barbosa Dec 14, 2018 16:31
[2018-12-14] MEDS ORDERED: ZOFRAN4 M1 ORAL (16:33)
--- NOTE | 2018-12-14 16:40 | NUR ---
ED Nurse Note: Patient presents to ED due to headache, N/V and dizziness. Patient also has non-productive cough. Patient vomited at home after taking laxative and amoxicilln together this morning. Patient awake, alert, oriented x 4. Regular unlabored breathing noted. P.A. notified of headache. No further order received. Patient has mask on.
[2018-12-14 16:45] VITALS: BP 107/67
--- NOTE | 2018-12-14 16:45 | NUR ---
ED Nurse Note: Patient is being discharged from medical care. Awake, alert and oriented x4. After care instructions, including prescriptions were given. Patient verbalized understanding of After care instructions. ID band were removed. Patient ambulated out with all personal belongings with steady gait.
== END 2018-12-14 16:45 | disposition home or self-care (01) ==
LOC: EMR 16:40
DX: R11.10 Vomiting, unspecified (principal); R51 Headache
CPT/HCPCS: 99282

== ENCOUNTER 2019-03-28 02:34 | Emergency (ER) | payer SELFPAY ==
[~2019-03-28] VITALS: Ht 157.5 cm; Wt 88.5 kg
[~2019-03-28 02:34] MED LIST changes: +ZOFRAN4 M1 ORAL
--- NOTE | 2019-03-28 02:42 | NUR ---
ED Nurse Note: Pt ambulated to ED from home c/o / pain in inner upper L thigh, pt reports abcess noticed 3 days ago. VSS, pt A&Ox4
[2019-03-28 02:45] VITALS: BP 161/104
[2019-03-28] MEDS ORDERED: Lidocaine 1% 10mg/ml/Epi 0.005mg/ml 10ml vial INJ ONE (02:45)
[2019-03-28] MEDS ORDERED: Morphine Sulfate 2mg/ml Inj(IV/IM USE ONLY) IM ONE (02:45)
--- NOTE | 2019-03-28 02:47 | Emergency Room Report ---
History of Present Illness General Chief Complaint: Skin Rash/Abscess Source: Patient Present Illness HPI Disclaimer: Please note that this report is being documented using [employer] technology. This can lead to erroneous entry secondary to incorrect interpretation by the dictating instrument. HPI: 23-year-old female with no reported medical history presents for evaluation of rash and possible abscess. Patient states she has not noticed a "ball" in her right inner thigh for the past 3 days. Is now become exquisitely painful. She tried to pop it herself but was unable to. States the pain is now unbearable especially with ambulation. Reports subjective fevers but has not taken any temperatures. Denies vomiting, diarrhea, abdominal pain, lightheadedness, chest pain or palpitations otherwise. PMH: Denies PSH: Denies Allergies: Denies Social Hx: Denies Allergies: Coded Allergies: No Known Allergies (Unverified , 08/21/15) Patient History Last Menstrual Period: 03/26/19 Now: No Nursing Documentation-PMH Past Medical History: No History, Except For Hx Asthma: Yes Review of Systems All Other Systems: negative except mentioned in HPI Physical Exam Vital Signs Date Time Temp Pulse Resp B/P (MAP) Pulse Ox O2 Delivery O2 Flow Rate FiO2 03/28/19 02:37 98.8 90 14 161/104 (123) 97 Room Air General: Awake and alert, appears uncomfortable HEENT: NC/AT. EOMI. Resp: Normal work of breathing. Skin: There is a 3 x 3 cm raised fluctuant tender and warm mass in the right inner thigh. No overlying skin breakdown, no drainage, no bleeding. Surrounding erythema is present MSK: Normal tone and bulk. Moving all extremities. No obvious deformity. Neuro: Awake and alert. Mentating appropriately. Procedures Incision and Drainage Incision and Drainage : Blade Size: 11 I & D Procedure: betadine prep, sterile drapes applied, sterile dressing applied, gauze wick placed Wound Location: lower extremity - Right thigh Wound's Depth, Shape: superficial Wound Length (cm): 4 Wound Explored: clean Irrigated w/ Saline (ccs): 500 Anesthesia: Lidocaine w/ Epi Volume Anesthetic (ccs): 5 Patient Tolerated: Well Complications: None Additional Procedure Procedure Narrative Bedside ultrasound of soft tissue. Subcutaneous fluid collection consistent with abscess in the right upper thigh Medical Decision Making Diagnostic Impression: Primary Impression: Abscess ER Course 23-year-old female presents for evaluation of painful swelling in the right upper thigh. Ultrasound confirmed a fluid-filled cavity consistent with abscess which was incised and drained at bedside. Purulent material was expelled and the wound was irrigated with sterile water under pressure. A ribbon dressing was placed to allow further drainage. Patient was started on Bactrim and will follow up with PMD. We discussed reasons to return to the emergency department. Understands and agrees to treatment plan was discharged. Last Vital Signs Date Time Temp Pulse Resp B/P (MAP) Pulse Ox O2 Delivery O2 Flow Rate FiO2 03/28/19 02:37 98.8 90 14 161/104 (123) 97 Room Air Disposition: HOME, SELF-CARE Condition: Improved Scripts Trimethoprim/Sulfamethoxazole 160/800* (BACTRIM DS TABLET*) 1 Each Tablet 1 TAB ORAL Q12H for 7 Days, #14 TAB 0 Refills Prov: Calin Conteh MD 03/28/19 Calin Conteh MD Mar 28, 2019 02:47
[2019-03-28] MEDS ORDERED: BACTRIM DS TAB1 EAC1 ORAL (03:08)
[2019-03-28 03:20] VITALS: BP 161/104
--- NOTE | 2019-03-28 03:20 | NUR ---
ER DISCHARGE NOTE: Patient is cleared to be discharged per ERMD, pt is aox4, on room air, with stable vital signs. pt was given dc and prescription instructions, pt was able to verbalize understanding, pt id band removed. pt is able to ambulate with steady gait. pt took all belongings. Pt had abcess lanced, drained, irrigated and packed. Pt tolerated well
== END 2019-03-28 03:20 | disposition home or self-care (01) ==
LOC: EMR 03:00
DX: L02.415 Cutaneous abscess of right lower limb (principal)
CPT/HCPCS: 10060; 96372; 99283; J2270